=== PATIENT | male | born 1990 | race Hispanic/Latino ===

== ENCOUNTER 2018-11-02 06:33 | Day surgery (SDC) | payer OTHER ==
[2018-11-01 14:58] VITALS: BP 123/74
[2018-11-01 15:00] LABS: BASOPHILS % (AUTO) 0.8 % (0.0-5.0); EOSINOPHILS % (AUTO) 1.4 % (0.0-8.0); HEMATOCRIT 47.2 % (42-54); LYMPHOCYTES % (AUTO) 39.1 % (21.0-51.0); MEAN CORPUSCULAR HEMOGLOBIN 32.1 pg (27.0-33.0); MEAN CORPUSCULAR HGB CONC 34.5 g/dL (32.0-36.0); MEAN CORPUSCULAR VOLUME 93.1 fL (79-99); MONOCYTES % (AUTO) 8.2 % (3.0-13.0); NEUTROPHILS % (AUTO) 50.5 % (40.0-77.0); NUCLEATED RED BLOOD CELLS 0.1 % (0.0-0.19); PLATELET COUNT (AUTO) 288 K/uL (130-400); RED BLOOD CELL COUNT(AUTO) 5.07 MIL/uL (4.50-6.20); RED CELL DISTRIBUTION WIDTH 12.7 % (11.0-15.5); WHITE BLOOD COUNT (AUTO) 7.9 K/uL (4.8-10.8)
[2018-11-01 15:09] LABS: POTASSIUM 4.7 mmol/L (3.5-5.1)
[~2018-11-02] VITALS: Ht 177.8 cm; Wt 95.7 kg
[2018-11-02] VITALS (14 sets, daily range): BP systolic 99–135; BP diastolic 50–73
[~2018-11-02 06:33] MED LIST: CEFAZOLIN SODIUM 1 GM VIAL IVP SCH
[2018-11-02] MEDS ORDERED: LACTATED RINGERS 1000ML 1,000 ML IV ONE (07:00)
[2018-11-02] MEDS ORDERED: ONDANSETRON HCL 4 MG/2 ML VIAL ONE (07:07)
[2018-11-02] MEDS ORDERED: PROPOFOL 10 MG/ML 20ML VIAL IV ONE (07:07)
[2018-11-02] MEDS ORDERED: FENTANYL CITRATE PF 50 MCG/1 ML 2ML VIAL ONE ×2 (07:07→09:03)
[2018-11-02] MEDS ORDERED: DEXAMETHASONE SOD PHOSPHATE 4 MG/ML 1ML VIAL ONE (07:07)
[2018-11-02] MEDS ORDERED: LIDOCAINE PF 2% 5ML ABBOJECT ONE (07:07)
[2018-11-02] MEDS ORDERED: MIDAZOLAM HCL 1 MG/ML 2ML VIAL ONE (07:07)
[2018-11-02] MEDS ORDERED: PHENYLEPHRINE HCL 10 MG/ML 1ML VIAL IV ONE ×2 (07:16→07:20)
--- NOTE | 2018-11-02 07:23 | NUR ---
POTENTIAL FOR INJURY: RIGHT KNEE / LEG SHAVED FOLLOWED BY WIPING WITH AWILDA: 2% CHLORHEXIDINE GLUCONATE CLOTH PATIENTS PRE-OP SKIN PREP PER VICKY COYNE.
[2018-11-02] MEDS ORDERED: KETOROLAC TROMETHAMINE 30MG/ML ONE (08:49)
[2018-11-02] MEDS ORDERED: NAPR-1192 PO (09:54)
[2018-11-02] MEDS ORDERED: TYL3 PO (09:54)
[2018-11-02] MEDS ORDERED: CEPH500B PO (09:54)
[2018-11-02] MEDS ORDERED: MEPERIDINE-PF 25 MG/ML SYG ONE ×2 (10:05→10:14)
--- NOTE | 2018-11-02 10:52 | NUR ---
RECEIVE PT RECEIVED FROM PACU VIA STRETCHER AWAKE ALERT ORIENTED X3. PT STABLE. PT STATES HE ONLY HAS A LITTLE PAIN TO INCISION RIGHT KNEE, ABOUT 3. DRESSING TO RIGHT KNEE DRY AND INTACT, NO OOZING NO SWELLING NOTED. SENSATION INTACT. CALL COLON WITHIN REACH, WILL CALL FOR TO COME IN TO ROOM.
--- NOTE | 2018-11-02 11:36 | NUR ---
DISCHARGE PT DISCHARGED VIA WHEELCHAIR WITH . PT STABLE. DRESSING TO RIGHT KNEE REMAINS DRY AND INTACT, ABLE TO APPLY SOME WEIGHT TO RIGHT LEG TOLERATED, INSTRUCTED WEIGHT BEARING TOLERATED TO RIGHT LEG. CRUTCHES PROVIDED. DISCHARGE INSTRUCTIONS GIVEN TO AND PT, VERBALIZED UNDERSTANDING.
== END 2018-11-02 11:36 | disposition home or self-care (01) ==
LOC: DAH 06:33
PROVIDERS: ATTEND Orthopaedic Surgery
DX: S83.251A Bucket-handle tear of lateral meniscus, current injury, right knee, initial encounter (principal); S83.211A Bucket-handle tear of medial meniscus, current injury, right knee, initial encounter; W01.0XXA Fall on same level from slipping, tripping and stumbling without subsequent striking against object, initial encounter; Y93.9 Activity, unspecified; Y92.89 Other specified places as the place of occurrence of the external cause; Y99.9 Unspecified external cause status; M94.261 Chondromalacia, right knee; Z98.890 Other specified postprocedural states; Z68.31 Body mass index [BMI] 31.0-31.9, adult; Z79.899 Other long term (current) drug therapy
CPT/HCPCS: 29880; 36415; 80048; 85025; A4218; A4606; A4649 ×2; A4930; A6223; J0690; J1100; J1885; J2001; J2175 ×2; J2250; J2370 ×2; J2405; J2704; J3010 ×2; J7120 ×2